=== PATIENT | female | born 1995 | race Caucasian/White ===

== ENCOUNTER 2022-11-17 09:13 | Outpatient (CLI) | payer BC, SELFPAY ==
--- NOTE | 2022-11-17 09:15 | CRLHL7_ITS ---
For Patients: As a result of the Century Cures Act, medical imaging exams and procedure reports are released immediately into your electronic medical record. You may view this report before your referring provider. If you have questions, please contact your health care provider. Indication: Abdominal wall lump Technique: Grayscale and color Doppler ultrasound of the right lower quadrant abdominal wall soft tissues performed. Comparison: None Findings: Within the right lower quadrant abdominal wall subcutaneous fat, superficial to the muscular layer, there is a solid circumscribed mass. This measures 3.7 x 1.4 x 2.5 cm. No suspicious vascularity. Echotexture is isoechoic with adjacent fat. Impression: Subcutaneous lipoma just beneath the skin within the right lower quadrant abdominal wall measuring 3.7 x 1.4 x 2.5 cm. Dictated by Santiago Cosme MD @ 11/17/2022 10:11:12 AM (Electronically Signed)
== END 2022-11-17 09:14 | disposition home or self-care (01) ==
LOC: US 09:15
PROVIDERS: PCP Emergency Medicine; Visit Provider Emergency Medicine
DX: R22.9 Localized swelling, mass and lump, unspecified (principal); D17.79 Benign lipomatous neoplasm of other sites
CPT/HCPCS: 76705